=== PATIENT | male | born 1955 | race Caucasian/White ===

== ENCOUNTER → 2016-11-30 | Outpatient (CLI) | payer BC ==
--- NOTE | 2016-11-30 10:17 | RAD ---
Indication long smoking history. Screen for lung malignancy. Axial noncontrast images through the chest were obtained. Images were reformatted in the coronal and sagittal planes. No prior CT imaging of the chest is available. The thoracic aorta appears unremarkable. There is some coronary artery calcification. There are a few mediastinal lymph nodes. Definite pathologic mediastinal or hilar adenopathy is not seen. Some calcified pretracheal and right hilar lymph nodes are noted. Imaging through the upper abdomen is unremarkable. There is a densely calcified granuloma in the right upper lobe. Occasional smaller calcified granulomas are additionally noted. There is some minimal volume loss in the lower lobes likely reflecting atelectasis. An acute parenchymal infiltrate or dominant soft tissue mass is not seen. Significant interstitial or emphysematous changes are not seen. IMPRESSION: No acute or significant finding. Lung BI-RADS 1. Negative. PQRS Compliance Statement: One or more of the following individualized dose reduction techniques were utilized for this examination: 1. Automated exposure control 2. Adjustment of the mA and/or kV according to patient size 3. Use of iterative reconstruction technique
== END | disposition home or self-care (01) ==
LOC: CT 08:58
PROVIDERS: ATTEND Internal Medicine Pulmonary Disease
DX: Z12.2 Encounter for screening for malignant neoplasm of respiratory organs (principal); Z87.891 Personal history of nicotine dependence
CPT/HCPCS: 71250

== ENCOUNTER → 2016-12-19 | Outpatient (CLI) | payer BC ==
--- NOTE | 2016-12-26 12:23 | SLEEP ---
DATE OF STUDY: 12/19/2016 ATTENDING PHYSICIAN: Dr. Yamel Rascon. The patient is a 61 years old who weighs 255 pounds and 69 inches tall with a BMI of 37. The patient's Kismet score was 8. Home sleep study was performed by [facility]. During the night study, total recording time was 289 minutes. During this time, the patient had 85 obstructive apneas, no central apneas and 1 mixed apnea. There were 22 hypopneas. The patient's apnea hypopnea index was 22.6 per hour. No supine sleep was observed. Review of nocturnal oximetry study revealed an average oxygen saturation of 85% with the lowest of 72%. ____ minutes were spent in oxygen saturation of less than 90% Mean heart rate was 79 beats per minute with a maximum of 100 beats per minute. IMPRESSION: 1. Moderate sleep apnea-hypopnea syndrome with an AHI of 22.6 per hour. 2. Nocturnal hypoxia secondary to obstructive sleep apnea. RECOMMENDATIONS: 1. The patient should return for in-lab CPAP titration. 2. Once optimal CPAP pressure is achieved, then follow up in 4-6 weeks to assess compliance with CPAP and to document clinical improvement. 3. Weight loss is strongly advised. 4. Avoid [employer] F[employer] depressants. 5. Caution regarding driving until the patient's sleep apnea is effectively treated. MD MARIELA OLSEN/aris JOB#: [id number] / [id number] YAMEL Winston MD
== END | disposition home or self-care (01) ==
LOC: RT 15:48
PROVIDERS: ATTEND Internal Medicine Pulmonary Disease
DX: G47.33 Obstructive sleep apnea (adult) (pediatric) (principal)
CPT/HCPCS: G0399

== ENCOUNTER → 2017-01-08 | Outpatient (CLI) | payer BC ==
--- NOTE | 2017-01-09 16:22 | SLEEP ---
DATE OF STUDY: 01/08/2017 ATTENDING PHYSICIAN: Dr. Surya Mehta. REFERRING PHYSICIAN: Dr. Ata Rascon. The patient is a 61-year-old who weighs 255 pounds with a BMI of 38. The patient had a sleep study performed in December 2016 and was found to have moderate REED with an AHI of 22 per hour. The patient returned to the Sleep Lab for CPAP titration. During the night study, the patient spent 391 minutes in bed and slept for 344 minutes with a sleep efficiency of 88%. Sleep latency was 12 minutes with a REM latency of 55 minutes. Overall, sleep architecture showed normal stage I and stage II sleep, normal slow wave, and normal REM sleep. The patient was started on CPAP at a pressure of 7 cm water as he was unable to tolerate lower pressure. At a final pressure of 15 cm water, the patient slept for 43 minutes. During that time, supine as well as REM sleep was observed. AHI was reduced to 3 per hour and oxygen saturation remained above 88%. The patient used medium sized full face mask. EKG monitoring revealed normal sinus rhythm. Average heart rate was 79 beats per minute. No sustained arrhythmias were observed. There was some sweat artifact seen on the EKG. PLMS were seen at an index of 53 per hour, but only 1 per hour caused EEG arousals. IMPRESSION: 1. Moderate sleep apnea diagnosed by previous sleep study. 2. Severe periodic limb movements at an index of 53 per hour, but only 1 per hour caused EEG arousals. RECOMMENDATIONS: 1. CPAP at 15 cm of water completely eliminated the patient's sleep apnea and should be used on a nightly basis. 2. Follow up in 4-6 weeks to assess compliance with CPAP and to document clinical improvement. 3. Weight loss was strongly advised. 4. Avoid [employer] depressants. 5. Caution regarding driving until symptoms of sleep apnea resolve with the use of CPAP. 6. PLMS do not need to be treated unless the patient is clinically symptomatic. The patient should also be further evaluated for symptoms of restless legs during the day. TEMO WALLER MD DR: CAROL/aris JOB#: [id number] / [id number] SURYA MEHTA MD, GEORGE MD
== END | disposition home or self-care (01) ==
LOC: RT 18:32
PROVIDERS: ATTEND Internal Medicine Pulmonary Disease
DX: G47.33 Obstructive sleep apnea (adult) (pediatric) (principal)
CPT/HCPCS: 95811